=== PATIENT | male | born 1980 | race Two or more races ===

== ENCOUNTER 2017-06-11 12:14 | Emergency (ER) | payer SELFPAY ==
[2017-06-11 12:28] VITALS: BP 146/82; PULSE 80; TEMP 98; BMI 26.6
[2017-06-11] MEDS ORDERED: TRIAMCINOLONE ACET 40MG/1ML VIAL IM ONE (13:05)
[2017-06-11] MEDS ORDERED: TRIAMCINOLONE ACET 40MG/1ML VIAL ONE (13:08)
--- NOTE | 2017-06-11 13:14 | PDOC ---
History of Present Illness - General Chief Complaint: Rash Stated Complaint: POISON DAGOBERTO POSSIBLE ALLERGIC REACTION Time Seen by Provider: 06/11/17 12:30 History Source: Patient Exam Limitations: No Limitations - History of Present Illness Initial Comments: 06/11/17 13:08 c/o poison dagoberto started 2 days ago while working outside to the right wrist, forearm, working ourside doing landscaping. Pt states rash is itchy has spread to the face and right inner thigh. Severity: Yes: moderate Past History - Past Medical History Allergies/Adverse Reactions: Allergies Allergy/AdvReac Type Severity Reaction Status Date / Time No Known Allergies Allergy Verified 06/11/17 12:28 Home Medications: Ambulatory Orders Loratadine [Claritin] 10 mg PO DAILY #14 tablet 06/11/17 Methylprednisolone [Medrol Dose Roger] 4 mg PO ASDIR #21 tablet 06/11/17 COPD: No - Suicide/Smoking/Psychosocial Hx Smoking History: Current every day smoker Have you smoked in the past 12 months: Yes Number of Cigarettes Smoked Daily: 2 Information on smoking cessation initiated: Yes 'Breaking Loose' booklet given: 06/11/17 Hx Alcohol Use: Yes Drug/Substance Use Hx: No Substance Use Type: Alcohol Review of Systems - Review of Systems Able to Perform ROS?: Yes Is the patient limited Upper Sorbian proficient: No Constitutional: No: Symptoms Reported HEENTM: No: Symptoms Reported Respiratory: No: Symptoms reported Cardiac (ROS): No: Symptoms Reported ABD/GI: No: Symptoms Reported : No: Symptoms Reported Integumentary: Yes: Symptoms Reported *Physical Exam - Vital Signs Last Vital Signs Temp Pulse Resp BP Pulse Ox 98.0 F 80 18 146/82 100 06/11/17 12:26 06/11/17 12:26 06/11/17 12:26 06/11/17 12:26 06/11/17 12:26 - Physical Exam General Appearance: Yes: Nourished, Appropriately Dressed HEENT: positive: EOMI, ZONIA, Normal ENT Inspection, TMs Normal, Pharynx Normal Musculoskeletal: positive: Normal Inspection Integumentary: positive: Other (right forearm , right side face and inner thigh with erythematous , maculopapular with fluid filler vesicular puritic rash ) Neurologic: positive: Fully Oriented, Alert, Normal Mood/Affect, Motor Strength 5/5 Medical Decision Making - Medical Decision Making 06/11/17 18:01 cc: poison dagoberto rash will give kenalog now will placeon medrol dose taper, claritin and benadryl for itching pt understands the dc plan of care. all questions asked and answered *DC/Admit/Observation/Transfer Diagnosis at time of Disposition: Allergic dermatitis due to poison dagoberto - Discharge Dispostion Disposition: HOME Condition at time of disposition: Good - Prescriptions Prescriptions: Loratadine [Claritin] 10 mg PO DAILY #14 tablet Methylprednisolone [Medrol Dose Roger] 4 mg PO ASDIR #21 tablet - Referrals - Patient Instructions Printed Discharge Instructions: DI for Poison Dagoberto Allergy Additional Instructions: cool water to bathe avoid any hot water, this will make rash worse start the medrol dose pack tomorrow morning start the claritin tomorrow morning take benadryl at night to help with itching apply a topical cream like caladryl or calamine to help dry the rash return to ER for any worsening symptoms agua fra para baarse evite cualquier chitina, esto empeorar la erupcin Comience el paquete de dosis de medrol maana por la maana comienza el claritin maana por la maana sea benadryl por la noche para ayudar con la picazn aplique martha crema tpica zulema caladryl o calamina para ayudar a secar la erupci n volver a la edy de emergencias por cualquier empeoramiento de los sntomas Print Language: ITALIAN - Post Discharge Activity
== END 2017-06-11 13:17 | disposition home or self-care (01) ==
LOC: JERFT 12:14
PROC: 3E0233Z Introduction of Anti-inflammatory into Muscle, Percutaneous Approach (ICD-10-PCS; principal; 2017-06-11)
DX: L23.7 Allergic contact dermatitis due to plants, except food (principal)
CPT/HCPCS: 99281-25